=== PATIENT | male | born 1965 | race Caucasian/White ===

== ENCOUNTER 2020-07-21 13:23 | Emergency (ER) | payer OTHER ==
[~2020-07-21] VITALS: Ht 180.3 cm; Wt 99.8 kg
[2020-07-21] MEDS ORDERED: IVERMECTIN3 MG PO (15:13)
[2020-07-21] MEDS ORDERED: PROAIR HFA INH8.5 GM PO (15:13)
[2020-07-21] MEDS ORDERED: ALBUTEROL2.5 MG/3 M NEB (15:13)
[2020-07-21] MEDS ORDERED: PREDNISONE20 MG PO (15:13)
[2020-07-21] MEDS ORDERED: DOXYCYCLINE HY100 M3 PO (15:13)
[2020-07-21] MEDS ORDERED: BROMFED DM COU118 ML PO (15:13)
== END 2020-07-21 15:32 | disposition home or self-care (01) ==
LOC: FSED 14:09
DX: U07.1 COVID-19 (principal); J18.9 Pneumonia, unspecified organism; J45.991 Cough variant asthma; S29.011A Strain of muscle and tendon of front wall of thorax, initial encounter; R94.31 Abnormal electrocardiogram [ECG] [EKG]
CPT/HCPCS: 71046; 93005; 99283